=== PATIENT | male | born 2000 | race Hispanic/Latino ===

== ENCOUNTER 2021-05-25 06:01 | Emergency (ER) | payer SELFPAY ==
[~2021-05-25] VITALS: Ht 170.2 cm; Wt 64.4 kg
[2021-05-25] MEDS ORDERED: SODIUM CHLORIDE 0.9% 1000ML 1,000 ML IV STA (06:15)
[2021-05-25] MEDS ORDERED: SODIUM CHLORIDE 0.9% 1000ML 1,000 ML ONE (06:28)
[2021-05-25] MEDS ORDERED: MECLIZINE HCL 12.5 MG TAB PO ONE (06:30)
[2021-05-25] MEDS ORDERED: MECLIZINE HCL 12.5 MG TAB ONE (06:49)
[2021-05-25] MEDS ORDERED: MECLIZINE HCL12.5 MG PO (07:34)
== END 2021-05-25 07:41 | disposition home or self-care (01) ==
LOC: FSED 06:17
DX: H81.10 Benign paroxysmal vertigo, unspecified ear (principal)
CPT/HCPCS: 80048; 85025; 99283; J7030; J8597